=== PATIENT | female | born 1965 | race American Indian/Alaskan Native ===

== ENCOUNTER 2016-11-24 10:31 | Emergency (ER) | payer BC ==
[2016-11-24] MEDS ORDERED: NACL 0.9% 1000 ML 1,000 ML IV ONE (12:16)
[2016-11-24 12:51] LABS: Basophils % (Auto) 0.4 % (0.0-1.8); Eosinophils % (Auto) 0.3 % (0.0-4.3); Hematocrit 43.8 % (30.3-42.9); Hemoglobin 14.7 gm/dl (10.1-14.3); Mean Corpuscular HGB Conc 34 % (30-34); Mean Corpuscular Hemoglobin 30 pg (28-32); Mean Corpuscular Volume 90 fl (79-97); Platelet Count 221 K/mm3 (140-440); Red Blood Count 4.86 M/mm3 (3.65-5.03); Red Cell Distribution Width 14.8 % (13.2-15.2); White Blood Count 10.7 K/mm3 (4.5-11.0)
[2016-11-24 13:00] LABS: INR 1.17 (0.87-1.13)
[2016-11-24 13:01] LABS: Partial Thromboplastin Time 24.7 Sec. (24.2-36.6)
[2016-11-24 13:12] LABS: Alanine Aminotransferase 24 units/L (7-56); Albumin 4.3 g/dL (3.9-5); Albumin/Globulin Ratio 1.3 %; Alkaline Phosphatase 91 units/L (35-129); Anion Gap 16 mmol/L; Bilirubin,Total 0.6 mg/dL (0.1-1.2); Blood Urea Nitrogen 10 mg/dL (7-17); Calcium 9.4 mg/dL (8.4-10.2); Carbon Dioxide 27 mmol/L (22-30); Chloride 101.1 mmol/L (98-107); Glucose 124 mg/dL (65-100); Lipase 25 units/L (13-60); Potassium 3.5 mmol/L (3.6-5.0); Sodium 141 mmol/L (137-145); Total Protein 7.7 g/dL (6.3-8.2)
[2016-11-24] MEDS ORDERED: PROTONIX IV ONE (21:21)
[2016-11-24] MEDS ORDERED: NACL 0.9% 1000 ML 1,000 ML ONE (21:32)
--- NOTE | 2016-11-24 21:43 | Emergency Department Report ---
HPI - General Chief Complaint: GI Bleed Time Seen by Provider: 11/24/16 21:06 - HPI HPI: This is a 51-year-old Afro-[place]ish female who presents the emergency department , dropped off by a family member, with complaint of some abdominal discomfort, nausea, vomiting, one episode of diarrhea and/or loose stool, and one episode of rectal bleeding. Patient says she woke up this morning and started having the abdominal discomfort, vomited twice and then went to the bathroom and had the loose stool. Later in the day she thought she was going to have another bowel movement but said that she saw only purely bright red blood. Since that time she is continued to have some discomfort but no further bowel movements, vomiting or rectal bleeding. She is not taken anything for symptoms prior to presentation. She has a past medical history of hypertension, asthma, anxiety. Her primary care doctor is a doctor Yang. No recent travel or sick contacts at home. ED Past Medical Hx - Past Medical History Previous Medical History?: Yes Hx Hypertension: Yes Hx Psychiatric Treatment: Yes (anxiety) - Surgical History Past Surgical History?: Yes Additional Surgical History: hystorectomy 2003 - Social History Smoking Status: Never Smoker Substance Use Type: Alcohol - Medications Home Medications: Home Medications Medication Instructions Recorded Confirmed Last Taken Type Hydralazine HCl 50 mg PO DAILY 11/24/16 11/24/16 Unknown History Hydrochlorothiazide [HCTZ] 25 mg PO DAILY 11/24/16 11/24/16 Unknown History Sertraline [Zoloft] 100 mg PO DAILY 11/24/16 11/24/16 Unknown History amLODIPine [Norvasc] 10 mg PO DAILY 11/24/16 11/24/16 Unknown History cloNIDine [Catapres] 0.1 mg PO DAILY 11/24/16 11/24/16 Unknown History ED Review of Systems ROS: Stated complaint: ABD PAIN Other details as noted in HPI Comment: All other systems reviewed and negative Constitutional: denies: chills, fever Eyes: denies: eye pain, eye discharge, vision change ENT: denies: ear pain, throat pain Respiratory: denies: cough, shortness of breath, wheezing Cardiovascular: denies: chest pain, palpitations Gastrointestinal: abdominal pain, nausea, vomiting, other (BRBPR) Genitourinary: denies: urgency, dysuria, discharge Musculoskeletal: denies: back pain, joint swelling, arthralgia Skin: denies: rash, lesions Neurological: denies: headache, weakness, paresthesias Physical Exam - Physical Exam Vital Signs: Vital Signs 11/24/16 11/24/16 11/24/16 12:13 20:21 20:31 Temperature 98.5 F 98.9 F Pulse Rate 66 64 62 Respiratory 20 12 10 L Rate Blood Pressure 123/90 119/77 Blood Pressure 119/77 [Right] O2 Sat by Pulse 100 99 98 Oximetry 11/24/16 11/24/16 11/24/16 20:41 20:44 20:51 Temperature Pulse Rate 70 64 Respiratory 17 14 12 Rate Blood Pressure 119/77 119/77 Blood Pressure [Right] O2 Sat by Pulse 97 99 Oximetry 11/24/16 11/24/16 21:01 21:11 Temperature Pulse Rate 70 77 Respiratory 25 H 19 Rate Blood Pressure 132/75 132/75 Blood Pressure [Right] O2 Sat by Pulse 97 97 Oximetry Physical Exam: GENERAL: The patient is well-developed well-nourished. HEENT: Normocephalic. Atraumatic. Extraocular motions are intact. Patient has moist mucous membranes. Pupils equal reactive to light bilaterally. NECK: Supple. Trachea is midline. CHEST/LUNGS: Clear to auscultation. There is no respiratory distress noted. HEART/CARDIOVASCULAR: Regular. There is no tachycardia. There is no gallop rub or murmur. ABDOMEN: Abdomen is soft, nontender. Patient has normal bowel sounds. There is no abdominal distention. SKIN: Skin is warm and dry. NEURO: The patient is awake, alert, and oriented. The patient is cooperative. The patient has no focal neurologic deficits. The patient has normal speech. MUSCULOSKELETAL: There is no tenderness or deformity. There is no limitation range of motion. There is no evidence of acute injury. Cap refill less than 2 seconds. RECTAL: No gross blood. Stool is positive for guaiac testing. No hemorrhoids or lesions seen. ED Course Vital Signs 11/24/16 11/24/16 11/24/16 12:13 20:21 20:31 Temperature 98.5 F 98.9 F Pulse Rate 66 64 62 Respiratory 20 12 10 L Rate Blood Pressure 123/90 119/77 Blood Pressure 119/77 [Right] O2 Sat by Pulse 100 99 98 Oximetry 11/24/16 11/24/16 11/24/16 20:41 20:44 20:51 Temperature Pulse Rate 70 64 Respiratory 17 14 12 Rate Blood Pressure 119/77 119/77 Blood Pressure [Right] O2 Sat by Pulse 97 99 Oximetry 11/24/16 11/24/16 21:01 21:11 Temperature Pulse Rate 70 77 Respiratory 25 H 19 Rate Blood Pressure 132/75 132/75 Blood Pressure [Right] O2 Sat by Pulse 97 97 Oximetry ED Medical Decision Making - Lab Data Result diagrams: 11/24/16 12:35 11/24/16 12:35 - Radiology Data Radiology results: image reviewed interpreted by me: Abdominal x-ray shows nonspecific nonobstructive bowel gas. - Medical Decision Making 51-year-old female presents to the emergency department with complaint of some abdominal cramping, nausea and vomiting but most concerning was an episode of rectal bleeding. Patient's labs have been unremarkable including a hemoglobin greater than 14. Vital signs stable including being afebrile and there has been no hypotension. There were no hemorrhoids or lesions seen on rectal exam. No gross blood. Stool positive for guaiac. Abdominal x-ray does not show any acute process. Patient appears safe for discharge home but understands that she needs to see a process area supervisor in the near future and most likely will need a colonoscopy. She will return to the ER with any worsening of her symptoms or any acute distress. - Differential Diagnosis hemorrhoids, malignancy, diverticulosis, ulcers Critical Care Time: No Critical care attestation.: If time is entered above; I have spent that time in minutes in the direct care of this critically ill patient, excluding procedure time. ED Disposition Clinical Impression: Rectal bleeding Abdominal pain Qualifiers: Abdominal location: generalized Qualified Code(s): R10.84 - Generalized abdominal pain Disposition: DISCHARGED TO HOME OR SELFCARE Is pt being admited?: No Condition: Stable Instructions: Rectal Bleeding (ED) Additional Instructions: Please follow-up with your primary care doctor in the next few days. I have given her a referral for a local process area supervisor, Dr. Reyes, to follow up regarding her rectal bleeding. Return to the emergency department with any worsening of your symptoms or any acute distress. Referrals: BERNIE YANG MD [Primary Care Provider] - 3-5 Days BUZZ REYES MD [Staff Physician] - 3-5 Days Forms: Accompanied Note Time of Disposition: 23:39
[2016-11-24 22:52] VITALS: BP 132/75
--- NOTE | 2016-11-24 23:18 | XRay Report ---
FINAL REPORT EXAM: XR ABDOMEN 2V HISTORY: abd pain TECHNIQUE: Supine and upright views of the abdomen. PRIORS: None. FINDINGS: The bowel gas pattern appears normal. There is no evidence of ileus or obstruction. There are no suspicious calcifications. There is mild left convex and rotatory scoliosis of the lumbar spine. IMPRESSION: No evidence of acute abdominal disease.
== END 2016-11-25 00:20 | disposition home or self-care (01) ==
LOC: ED 10:31
DX: K62.5 Hemorrhage of anus and rectum (principal); R10.84 Generalized abdominal pain; R11.2 Nausea with vomiting, unspecified; R19.7 Diarrhea, unspecified; I10 Essential (primary) hypertension; F41.9 Anxiety disorder, unspecified; Z90.710 Acquired absence of both cervix and uterus; Z91.041 Radiographic dye allergy status; Z91.040 Latex allergy status; Z88.6 Allergy status to analgesic agent; Z88.8 Allergy status to other drugs, medicaments and biological substances
CPT/HCPCS: 36415; 74020; 80053; 83690; 85025; 85610; 85730; 86850; 86900; 86901; 93005; 93010; 96361; 96374; 99284; C9113; J7030